=== PATIENT | female | born 1990 | race Hispanic/Latino ===

== ENCOUNTER 2022-08-05 10:51 | Inpatient (IN) | payer MEDICAID, OTHER, SELFPAY ==
[2022-08-05] MEDS ORDERED: Carboprost 250 MCG/ML AMP IM PRN (11:57)
[2022-08-05] MEDS ORDERED: Diphenoxylate HCl/Atropine Tablet PO PRN (11:57)
[2022-08-05] MEDS ORDERED: Tranexamic Acid 1,000 MG in Sodium Chloride 0.9% 250 ML 250 ML IVPB PRN (11:57)
[2022-08-05] MEDS ORDERED: Promethazine HCl 25 MG/ML VIAL IM PRN ×3 (11:57→18:11)
[2022-08-05] MEDS ORDERED: hydrALAZINE 20 MG/ML VIAL SLOW IVP PRN ×2 (11:57→18:11)
[2022-08-05] MEDS ORDERED: Misoprostol 200 MCG TAB PR PRN (11:57)
[2022-08-05] MEDS ORDERED: Famotidine/PF 20 mg/2ml Vial SLOW IVP PRN (11:57)
[2022-08-05] MEDS ORDERED: Methylergonovine 0.2 MG/ML VIAL IM PRN (11:57)
[2022-08-05] MEDS ORDERED: Ondansetron PF 4 MG/2 ML Vial IVP PRN ×3 (11:57→18:11)
[2022-08-05] MEDS ORDERED: Bicitra 30 ML UDCUP PO PRN (11:57)
[2022-08-05] MEDS ORDERED: Lactated Ringer's 1,000 ML IV SCH (12:00)
[2022-08-05] MEDS ORDERED: CEFAZOLIN 2 GM in Sodium Chloride 0.9% 100 ML IVPB SCH (12:00)
[2022-08-05] MEDS ORDERED: NS w/ Oxytocin 30 units 500 ML IV SCH ×2 (12:00→18:11)
[2022-08-05 12:43] LABS: Hemoglobin 11.6 g/dL (12.0-15.5); Mean Corpuscular HGB CONC 32.5 g/dL (32.0-36.0); Mean Corpuscular Hemoglobin 25.7 pg (27.0-33.0); Mean Platelet Volume 11.5 fl (7.4-10.4); Platelet Count 220 10x3/uL (150-450); RBC Distribution Width 22.3 % (11.5-14.5); Red Blood Cell (RBC) Count 4.52 10x6/uL (3.90-5.03)
[2022-08-05 13:01] LABS: Syphilis Antibody Nonreactive (Nonreactive); Syphilis Antibody Index 0.05 S/CO (<1.00 Non-Reactive)
[2022-08-05 13:02] LABS: HBSAg Index 0.13 S/CO (0-0.99); Hep B Surf Ag Non-Reactive S/CO (NonReactive)
[2022-08-05] MEDS ORDERED: Famotidine/PF 20 mg/2ml Vial ONE (13:54)
[2022-08-05] MEDS ORDERED: CEFAZOLIN 2 GM VIAL ONE (13:54)
[2022-08-05 14:20] LABS: SARS-CoV-2 NAA Rapid Test Not Detected (NotDetected)
[2022-08-05] MEDS ORDERED: Morphine PF 10 MG/10 ML VIAL ONE (14:37)
[2022-08-05] MEDS ORDERED: PHENYLEPHRINE-NS 100 MCG/ML 10 ML SYRINGE ONE (14:50)
[2022-08-05] MEDS ORDERED: Oxytocin 10 UNITS/ML VIAL ONE ×2 (14:51→15:00)
[2022-08-05] MEDS ORDERED: Ketorolac Tromethamine 30 MG/ML VIAL ONE (14:53)
[2022-08-05] MEDS ORDERED: Ondansetron PF 4 MG/2 ML Vial ONE (14:54)
[2022-08-05] MEDS ORDERED: Hydrocortisone Sod Succ/PF 100 mg/2 ml Vial ONE (14:54)
[2022-08-05] MEDS ORDERED: Moisturizing Cream (Eucerin) 113 GM JAR TOP PRN (15:40)
[2022-08-05] MEDS ORDERED: Naloxone HCl 0.4 mg/ml Vial IV PRN (15:40)
[2022-08-05] MEDS ORDERED: Promethazine HCl 25 MG SUPP PR PRN (15:40)
[2022-08-05] MEDS ORDERED: Meperidine HCl/PF 25 MG/ML VIAL SLOW IVP PRN (15:40)
[2022-08-05] MEDS ORDERED: Fentanyl 100 MCG/2 ML VIAL SLOW IVP PRN (15:40)
[2022-08-05] MEDS ORDERED: diphenhydrAMINE 50 MG/ML VIAL IVP PRN (15:40)
[2022-08-05] MEDS ORDERED: Ketorolac Tromethamine 30 MG/ML VIAL IVP PRN (15:40)
[2022-08-05] MEDS ORDERED: Naloxone HCl 0.4 mg/ml Vial IVP PRN ×2 (15:40)
[2022-08-05] MEDS ORDERED: Ondansetron HCl/PF 4 MG/2 ML Vial IVP PRN (15:40)
[2022-08-05] MEDS ORDERED: Communication Order-Pharmacy FS SCH (15:45)
[2022-08-05] MEDS ORDERED: Ketorolac Tromethamine 30 MG/ML VIAL IVP SCH (15:45)
[2022-08-05 16:21] VITALS: BMI 26.9
[2022-08-05] MEDS ORDERED: Simethicone Chewable 80 MG TAB PO PRN (18:11)
[2022-08-05] MEDS ORDERED: Meperidine HCl/PF 25 MG/ML VIAL IM PRN (18:11)
[2022-08-05] MEDS ORDERED: Boostrix 0.5 ML (Tdap) VIAL (>/=7 yrs of age) IM ONE (18:11)
[2022-08-05] MEDS ORDERED: Lanolin Ointment 7 GM TUBE TOP PRN (18:11)
[2022-08-05] MEDS ORDERED: diphenhydrAMINE 25 MG CAP PO PRN (18:11)
[2022-08-05] MEDS ORDERED: Bisacodyl 10 MG SUPP PR PRN (18:11)
[2022-08-05] MEDS ORDERED: Ibuprofen 800 MG TAB PO SCH ×2 (18:45→22:00)
[2022-08-05] MEDS: Ferrous Sulfate 325 MG TAB PO SCH (21:36)
[2022-08-05] MEDS: Docusate 100 MG CAP PO SCH (21:36)
[2022-08-05] MEDS: Ketorolac Tromethamine 30 MG/ML VIAL IVP SCH (21:37)
[2022-08-06] MEDS ORDERED: HYDROcodone/Acetaminophen 5/325 mg Tablet PO PRN ×2 (03:45)
[2022-08-06] MEDS: Ketorolac Tromethamine 30 MG/ML VIAL IVP SCH ×2 (03:49→09:16)
[2022-08-06 04:51] LABS: Hemoglobin 10.9 g/dL (12.0-15.5); Mean Corpuscular HGB CONC 32.2 g/dL (32.0-36.0); Mean Corpuscular Hemoglobin 25.8 pg (27.0-33.0); Mean Corpuscular Volume 80.3 fl (81.6-98.3); Mean Platelet Volume 11.2 fl (7.4-10.4); Platelet Count 201 10x3/uL (150-450); RBC Distribution Width 21.4 % (11.5-14.5); Red Blood Cell (RBC) Count 4.22 10x6/uL (3.90-5.03); White Blood Cell (WBC) Count 16.4 10x3/uL (3.5-10.5)
[2022-08-06] MEDS: Docusate 100 MG CAP PO SCH ×2 (09:16→20:44)
[2022-08-06] MEDS: Prenatal Vitamin 1 TAB PO SCH (09:16)
[2022-08-06] MEDS: Ferrous Sulfate 325 MG TAB PO SCH ×2 (11:11→22:18)
[2022-08-06] MEDS: Ibuprofen 800 MG TAB PO SCH ×2 (15:34→23:56)
[2022-08-07] MEDS: Ibuprofen 800 MG TAB PO SCH ×3 (07:59→22:51)
[2022-08-07] MEDS: Prenatal Vitamin 1 TAB PO SCH (07:59)
[2022-08-07] MEDS: Docusate 100 MG CAP PO SCH ×2 (07:59→21:34)
[2022-08-07] MEDS: Ferrous Sulfate 325 MG TAB PO SCH ×2 (08:13→21:33)
[2022-08-08 09:25] VITALS: BP 115/58; TEMP 98.5
[2022-08-08] MEDS: Docusate 100 MG CAP PO SCH (09:38)
[2022-08-08] MEDS: Prenatal Vitamin 1 TAB PO SCH (09:38)
[2022-08-08] MEDS: Ibuprofen 800 MG TAB PO SCH (09:38)
[2022-08-08] MEDS: Ferrous Sulfate 325 MG TAB PO SCH (09:39)
== END 2022-08-08 12:45 | disposition home or self-care (01) | DRG 788 ==
LOC: CSHLD 10:51 → CSHPP 17:17
PROVIDERS: ADMIT Family Medicine; ATTEND Family Medicine
PROC: 10D00Z1 Extraction of Products of Conception, Low, Open Approach (ICD-10-PCS; principal; 2022-08-05)
PROC: 3E0P05Z Introduction of Adhesion Barrier into Female Reproductive, Open Approach (ICD-10-PCS; 2022-08-05)
DX: O34.211 Maternal care for low transverse scar from previous cesarean delivery (principal); Z3A.39 39 weeks gestation of pregnancy; Z37.0 Single live birth; Z20.822 Contact with and (suspected) exposure to COVID-19; O77.0 Labor and delivery complicated by meconium in amniotic fluid
CPT/HCPCS: 36415; 51702; 85027; 86780; 86850; 86900; 86901; 87340; J1720; J1885; J2274; J2405; J2590; U0002